=== PATIENT | male | born 1965 | race African-American/Black ===

== ENCOUNTER 2018-10-05 11:44 | Outpatient (CLI) | payer MEDICARE ==
--- NOTE | 2018-10-05 12:09 | RAD ---
2 views of the chest: 10/05/2018 COMPARISON: None HISTORY: Elevated hemoglobin and white blood cell count FINDINGS: No pneumothorax, pleural fluid, focal consolidation, or alveolar edema. Heart and mediastin al contours are unremarkable. IMPRESSION: No acute findings.
== END 2018-10-05 11:45 | disposition home or self-care (01) ==
LOC: BICRAD 11:44
PROVIDERS: ATTEND Nurse Practitioner Family
DX: D72.828 Other elevated white blood cell count (principal)
CPT/HCPCS: 36415; 71046; 81001; 86480; 87086

== ENCOUNTER → 2019-02-18 | Day surgery (SDC) | payer MEDICARE ==
[2019-02-15 09:06] VITALS: BMI 28.8
[~2019-02-18] MED LIST: Fentanyl 100 MCG/2 ML VIAL ONE; Heparin 10,000 UNITS/1 ML VIAL ONE; Iopamidol 370 76% 100 ML VIAL ONE; Midazolam HCl 2 mg/2 ml Vial ONE; Nitroglycerin 100MG/250ML BOT 250 ML ONE; Verapamil 5 MG/2 ML VIAL ONE
[2019-02-18 07:54] LABS: Anion Gap 13 mmol/L (10-20); BUN (Urea Nitrogen) 13 mg/dL (8.4-25.7); Calc. Creatinine Clearance 67 mL/min (70-130); Calcium 9.8 mg/dL (7.8-10.44); Carbon Dioxide 23 mmol/L (22-29); Chloride 106 mmol/L (98-107); Estimated GFR-MDRD 47; Glucose 109 mg/dL (70-105); Sodium 138 mmol/L (136-145)
[2019-02-18 07:55] LABS: Cardiac Risk 6.5 (Less than 4.5)
== END ==
LOC: CCL 07:08
PROVIDERS: ATTEND Internal Medicine Cardiovascular Disease
PROC: 4A023N7 Measurement of Cardiac Sampling and Pressure, Left Heart, Percutaneous Approach (ICD-10-PCS; principal; 2019-02-18)
PROC: B2111ZZ Fluoroscopy of Multiple Coronary Arteries using Low Osmolar Contrast (ICD-10-PCS; 2019-02-18)
DX: I25.10 Atherosclerotic heart disease of native coronary artery without angina pectoris (principal); I42.9 Cardiomyopathy, unspecified; I10 Essential (primary) hypertension; Z79.899 Other long term (current) drug therapy
CPT/HCPCS: 80048; 80061; 93458; 93798; 99152; 99153; C1769; J1644; J2250; J3010; Q9967